=== PATIENT | male | born 2000 | race Caucasian/White ===

== ENCOUNTER → 2023-09-13 | Outpatient (CLI) | payer SELFPAY | LOC: M OUTALCOH 07:22 | PROVIDERS: ATTEND Psychiatry & Neurology Psychiatry | DX: Z13.39 Encounter for screening examination for other mental health and behavioral disorders (principal) ==

== ENCOUNTER → 2023-10-12 | Outpatient (RCR) | payer SELFPAY | LOC: M OUTALCOH 09-20 15:45 | PROVIDERS: ATTEND Psychiatry & Neurology Psychiatry | DX: F10.10 Alcohol abuse, uncomplicated (principal); F17.200 Nicotine dependence, unspecified, uncomplicated ==

== ENCOUNTER 2023-11-09 16:00 | Outpatient (RCR) | payer SELFPAY | END 2023-11-12 | LOC: M OUTALCOH 16:00 | PROVIDERS: ATTEND Psychiatry & Neurology Psychiatry | DX: F10.10 Alcohol abuse, uncomplicated (principal); F17.200 Nicotine dependence, unspecified, uncomplicated ==

== ENCOUNTER 2023-12-08 13:49 | Outpatient (RCR) | payer SELFPAY | END 2023-12-12 | LOC: M OUTALCOH 13:49 | PROVIDERS: ATTEND Psychiatry & Neurology Psychiatry | DX: F10.10 Alcohol abuse, uncomplicated (principal); F17.200 Nicotine dependence, unspecified, uncomplicated ==

== ENCOUNTER 2023-12-14 14:54 | Outpatient (RCR) | payer SELFPAY | END 2024-01-12 | LOC: M OUTALCOH 14:54 | PROVIDERS: ATTEND Psychiatry & Neurology Psychiatry | DX: F10.10 Alcohol abuse, uncomplicated (principal); F17.200 Nicotine dependence, unspecified, uncomplicated ==